=== PATIENT | male | born 1970 | race African-American/Black ===

== ENCOUNTER 2016-05-31 16:49 | Inpatient (IN) | payer MEDICARE, OTHER ==
--- NOTE | ~2016-05-31 | DS ---
Unit #: [id number] #: [id number] Patient: HORTENSIA GONZALES [id number] [facility] [address] [place] [address] [id number] MR#: [id number] NAME: HORTENSIA GONZALES. ROOM: [facility] Age: 46 Sex: M Admission Date: 05/31/2016 : 1970 Discharge Date: 06/06/2016 Attending Physician: Jordan Priest M.D. Primary Care Physician: Primary Care Physician No DISCHARGE SUMMARY REASON FOR ADMISSION The patient is a 46-year-old male, admitted in what appears to have been a synthetic marijuana-induced psychosis. HOSPITAL COURSE The patient was admitted to the [address] [place] [address] unit and placed on suicide precautions. He was initially begun on p.r.n. Zydis, but his behavior remained bizarre, intrusive, and frequently threatening, but usually only when the patient was not "getting his way." Whatever the case, he was begun on Haldol 10 mg b.i.d., as well as Cogentin for p.r.n. EPS and tolerated these medications well. His progress was meyers and by 06/06/2016, his psychotic symptoms had resolved with initiation of Haldol. Discharge was ordered. 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 DISPOSITION ON DISCHARGE The patient is discharged on the following medications; haloperidol 10 mg b.i.d. for psychosis, Cogentin 2 mg q.6 hours p.r.n. stiffness. DISCHARGE INSTRUCTIONS No dietary or physical restrictions were placed upon the patient at the time of discharge. FOLLOWUP Followup will take place through the auspices of community mental health resources. PROGNOSIS The patient's prognosis is considered fair. Dictated by... Jordan Priest M.D. CB/damien TD: 06/06/2016 23:46 JOB #: [id number] Unit #: [id number] #: [id number] Patient: HORTENSIA GONZALES DISCHARGE SUMMARY Page 1 of 1 X Jordan Priest MD X DISCHARGE SUMMARY
--- NOTE | ~2016-05-31 | PN ---
Unit #: [id number] #: [id number] Patient: HORTENSIA GONZALES [id number] [facility] [address] [place] [address] [id number] MR#: [id number] NAME: HORTENSIA GONZALES ROOM: P123 Age: 46 Sex: M Admission Date: 05/31/2016 : 1970 Attending Physician: Jordan Priest M.D. Admitting Physician: Jordan Priest M.D. Primary Care Physician: Primary Care Physician Lorie GALLAGHER PROGRESS NOTES DATE 06/05/2016 DISCUSSION The patient has been no further management problem and has selectively complied with prescribed Haldol. He is today requesting discharge from the hospital and is probably nearing his psychiatric baseline. Should he sustain progress discharge could likely take place tomorrow. Dictated by... Jordan Priest M.D. CB/joana TD: 06/06/2016 01:09 JOB #: [id number] [facility] PROGRESS NOTES Page 1 of 1 X Jrodan Priest MD PROGRESS NOTE
--- NOTE | ~2016-05-31 | PN ---
Unit #: [id number] #: [id number] Patient: HORTENSIA GONZALES [id number] [facility] [address] [place] [address] [id number] MR#: [id number] NAME: HORTENSIA GONZALES ROOM: P123 Age: 46 Sex: M Admission Date: 05/31/2016 : 1970 Attending Physician: Jordan Priest M.D. Admitting Physician: Jordan Priest M.D. Primary Care Physician: Primary Care Physician Lorie GALLAGHER PROGRESS NOTES DATE 06/02/2016 DISCUSSION The patient became increasingly paranoid and aggressive this morning requiring a p.r.n. dose of Haldol, Benadryl and Ativan. He is now soundly sleeping. I will add scheduled antipsychotic medication to the patient's current regimen. Dictated by... Jordan Priest M.D. CB/joana TD: 06/02/2016 20:51 JOB #: [id number] [facility] PROGRESS NOTES Page 1 of 1 X Jordan Priest MD PROGRESS NOTE
--- NOTE | ~2016-05-31 | HP ---
Unit #: [id number] #: [id number] Patient: HORTENSIA GONZALES [id number] [place] [address] [id number] MR#: [id number] NAME: HORTENSIA GONZALES. ROOM: P132 Age: 46 Sex: M Admission Date: 05/31/2016 : 1970 Attending Physician: Jordan Priest M.D. Admitting Physician: Jrodan Priest M.D. Primary Care Physician: Primary Care Physician No HISTORY AND PHYSICAL HISTORY OF PRESENT ILLNESS Hortensia is a 46-year-old admitted to [address] [place] [address] because of his drug use. He has had other admissions to this facility for the same. PAST MEDICAL HISTORY 1. Long history of illicit substance abuse to include Spice. PAST SURGICAL HISTORY Nothing reported. ALLERGIES No known drug allergies. SOCIAL HISTORY Smokes on occasion. Denies alcohol. Admits to a history of illicit substance abuse to include Heroin, Cocaine, but most recently Spice. He denies any IV drugs. FAMILY HISTORY Medically noncontributory. REVIEW OF SYSTEMS He does not answer questions appropriately. There are no reports of nausea, vomiting or diarrhea. He has had no cough or increased temperature. CURRENT MEDICATIONS Zyprexa. Xydis 10 mg q 8 hours p.r.n. Milk of Magnesia p.r.n. Maalox p.r.n. Tylenol p.r.n. PHYSICAL EXAMINATION GENERAL: Alert, well-nourished, in no apparent distress. VITAL SIGNS: 134/82, heart rate 68, respirations 16, temperature 98.6. WEIGHT: 137 pounds. Height 5'9" SKIN: Warm and dry without rash or lesion. HEENT: Normocephalic. TMs not viewed. Oral and nasal passages clear. Conjunctivae clear. PERRLA. EOMs intact. NECK: Supple without lymphadenopathy or thyromegaly. HEART: Regular rate and rhythm without murmur. LUNGS: Clear. Unit #: [id number] #: [id number] Patient: HORTENSIA GONZALES ABDOMEN: Soft, nontender. : Not done. EXTREMITIES: No evidence of cyanosis, clubbing or edema. Moves all without focal deficit. NEUROLOGICAL: Grossly within normal limits. Unable to complete extended exam. He does move all extremities without focal deficit. Hand chinese language professor is equal and gait is normal. MEDICAL ASSESSMENT AND PLAN 1. Psychiatric admission. RECOMMENDATIONS 1. Psychiatric, per psychiatrist. 2. I see no contraindications to participating in facility's activities. MEDICAL PROGNOSIS Good. MEDICAL CONDITION Stable. Dictated by... Alissa Keenan/darrick TD: 06/01/2016 01:15 JOB #: [id number] HISTORY AND PHYSICAL Page 1 of 1 X Shelby Rosario HISTORY AND PHYSICAL
--- NOTE | ~2016-05-31 | PN ---
Unit #: [id number] #: [id number] Patient: HORTENSIA GONZALES [id number] [facility] [address] [place] [address] [id number] MR#: [id number] NAME: HORTENSIA GONZALES ROOM: P123 Age: 46 Sex: M Admission Date: 05/31/2016 : 1970 Attending Physician: Jordan Priest M.D. Admitting Physician: Jordan Priest M.D. Primary Care Physician: Primary Care Physician Lorie GALLAGHER PROGRESS NOTES DATE 06/03/2016 DISCUSSION The patient had required a p.r.n. dose of Haldol, Benadryl, and Ativan yesterday. He is much calmer today and has exhibited little more in the way of any behavioral or aggressive symptoms. Again, his psychotic symptoms appear to have been entirely induced by his abuse of synthetic marijuana, and the patient is apprised of his need to cease use of this medication during today's interview. Dictated by... Jordan Priest M.D. CB/roberto TD: 06/03/2016 14:53 JOB #: [id number] [facility] PROGRESS NOTES Page 1 of 1 X Jordan Priest MD PROGRESS NOTE
--- NOTE | ~2016-05-31 | PN ---
Unit #: [id number] #: [id number] Patient: HORTENSIA GONZALES [id number] [facility] [address] [place] [address] [id number] MR#: [id number] NAME: HORTENSIA GONZALES ROOM: P123 Age: 46 Sex: M Admission Date: 05/31/2016 : 1970 Attending Physician: Jordan Priest M.D. Admitting Physician: Jordan Priest M.D. Primary Care Physician: Primary Care Physician Lorie GALLAGHER PROGRESS NOTES DATE 06/04/2016 DISCUSSION The patient has continued to express sexually inappropriate thoughts towards staff and remains irritable and psychotic. He had again required p.r.n. Haldol, Benadryl and Ativan yesterday. I will go ahead and instruct the patient on scheduled Haldol today as the patient does seem to have a good response to this medication. Dictated by... Jordan Priest M.D. CB/joana TD: 06/05/2016 03:04 JOB #: [id number] [facility] PROGRESS NOTES Page 1 of 1 X Jordan Priest MD PROGRESS NOTE
--- NOTE | ~2016-05-31 | PA ---
Unit #: [id number] #: [id number] Patient: HORTENSIA GONZALES [id number] [facility] [address] [place] [address] [id number] MR#: [id number] NAME: HORTENSIA GONZALES. ROOM: 32 Age: 46 Sex: M Admission Date: 05/31/2016 : 1970 Date of Assessment: 06/01/2016 Attending Physician: Jordan Priest M.D. Admitting Physician: Jordan Priest M.D. Primary Care Physician: Primary Care Physician No PSYCHIATRIC ASSESSMENT IDENTIFYING INFORMATION The patient is a 46-year-old male admitted with synthetic marijuana-induced psychosis. CHIEF COMPLAINT None given. INFORMANT(S) Chart and patient, reliability is fair. HISTORY OF PRESENT ILLNESS The patient is a 46-year-old male who is currently homeless. He reports that he has been smoking "10 blunts of spice a day," and as a result has become increasingly delusional and psychotic. The patient reported no suicidal or homicidal ideation but did report delusional paranoid thinking as well as visual and auditory hallucinations. Current stressors include his homelessness and recent breakup in relationship. The patient denies prior psychiatric treatment. He is on no prescribed psychotropic or other medications at this time. PAST PSYCHIATRIC HISTORY None. PAST MEDICAL HISTORY Noncontributory. MEDICATIONS None. ALLERGIES Invega. FAMILY HISTORY Noncontributory. SOCIAL HISTORY The patient is currently homeless. He reports substance use as noted previously and has a much more extensive substance use history. He has been arrested in the past on panhandling charges and at the age of 20 was charged with kidnapping. MENTAL STATUS EXAMINATION Examination at this time reveals the patient to be a well-developed Unit #: [id number] #: [id number] Patient: HORTENSIA GONZALES well-nourished male appearing stated age. She is in no apparent physical distress at the time of examination. He is awake, alert, and oriented in all spheres. His mood is mildly dysphoric, his affect constricted. Speech is generally well-coherent. There are no gross deficits in memory or cognition noted. Intelligence is judged to be in the average range based on fund of knowledge. The patient is cooperative throughout the interview. He is currently denying suicidal or homicidal ideation. He does report positive paranoid delusions and positive visual and auditory hallucinations. His judgment and insight appear to be significantly impaired. ASSETS AND LIABILITIES The patient's assets are to be assessed. Liabilities: Lack of resources. DIAGNOSTIC IMPRESSION 1. 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 2. 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 TREATMENT PLAN The patient remains hospitalized for safety and stabilization. I have left in place p.r.n. Zydis for psychosis. Once the patient is cleared somewhat, transfer to a chemical dependence treatment unit will be considered. ESTIMATED LENGTH OF STAY 5 to 7 days in the hospital. Followup will take place through the auspices of community mental health resources. Dictated by... Jordan Priest M.D. KEMAL/bzg TD: 06/01/2016 13:40 JOB #: [id number] PSYCHIATRIC ASSESSMENT Page 1 of 1 X Jordan Priest MD X PSYCHIATRIC ASSESSMENT
[2016-06-01 09:43] LABS: BASOPHIL% 0.5 % (0-2.5); EOSINOPHIL# 0.1 X10e3 (0-0.7); EOSINOPHIL% 1.3 % (0.0-7.0); HEMATOCRIT 41.2 % (38.0-50.0); HEMOGLOBIN 13.5 gm/dL (13.0-16.0); LYMPHOCYTE# 1.5 X10e3 (1.0-3.5); LYMPHOCYTE% 31.6 % (17.0-45.0); MEAN CELL VOLUME 93.1 FL (83-96); MEAN CORPUSCULAR HEMOGLOBIN 30.5 PG (28-34); MEAN CORPUSCULAR HGB CONC 32.8 g/dL (30-36); MEAN PLATELET VOLUME 9.1 FL (6.5-11.5); MONOCYTE# 0.6 X10e3 (0-1.0); MONOCYTE% 11.2 % (3.0-12.0); NEUTROPHIL# 2.7 X10e3 (1.5-7.1); NEUTROPHIL% 55.4 % (40-75); PLATELET COUNT 224 X10e3 (140-420); RED BLOOD COUNT 4.42 X10e (3.90-5.60); RED CELL DISTRIBUTION WIDTH 14.8 % (11.0-15.5); WHITE BLOOD COUNT 4.9 X10e3 (4.0-10.5)
[2016-06-01 09:44] LABS: DIFF IND NO
[2016-06-01 09:57] LABS: THYROID STIMULATING HORMONE 0.19 uIU/ml (0.34-5.60)
[2016-06-01 10:04] LABS: FREE THYROXIN (T4) 0.99 ng/dL (0.58-1.64)
[2016-06-01 10:20] LABS: ALBUMIN SERUM 3.6 g/dL (3.5-5.0); BILIRUBIN,TOTAL 0.9 mg/dL (0.2-2.0); BUN/CREATININE RATIO 17.5; CALCIUM SERUM 8.7 mg/dL (8.4-10.2); CREATININE SERUM 0.8 mg/dL (0.6-1.4); GLOM FILT RATE Estimated 125.1 mL/min (>60)
== END 2016-06-06 14:25 | disposition home or self-care (01) | DRG 897 ==
LOC: P1S 16:49
PROVIDERS: Specialist
DX: F16.150 Hallucinogen abuse with hallucinogen-induced psychotic disorder with delusions (principal); F16.151 Hallucinogen abuse with hallucinogen-induced psychotic disorder with hallucinations
CPT/HCPCS: 80053; 84439; 84443; 85025; J1200; J1630; J2060